=== PATIENT | male | born 1995 | race American Indian/Alaskan Native ===

== ENCOUNTER 2020-03-06 08:54 | Emergency (ER) | payer OTHER ==
[2020-03-06] MEDS ORDERED: SODIUM CHLORIDE 0.9% 1000 ML 1,000 ML ONE (08:59)
[2020-03-06] MEDS ORDERED: fentaNYL 100 MCG/2 ML INJ ONE (08:59)
[2020-03-06] MEDS ORDERED: ONDANSETRON 4 MG/2 ML INJ ONE (08:59)
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
[2020-03-06] MEDS ORDERED: fentaNYL 250 MCG/5 ML INJ IV ONE (09:34)
[2020-03-06] MEDS ORDERED: fentaNYL 100 MCG/2 ML INJ IV ONE ×3 (09:37→10:00)
[2020-03-06] MEDS ORDERED: SODIUM CHLORIDE 0.9% 1000 ML 1,000 ML IV ONE (09:45)
[2020-03-06] MEDS ORDERED: MIDAZOLAM 5 MG/5 ML INJ MDV IV NR (10:00)
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
[2020-03-06] MEDS ORDERED: ETOMIDATE 20 MG/10 ML INJ IV ONE ×2 (10:10→10:24)
--- NOTE | 2020-03-06 10:49 | XRay Report ---
RIGHT SHOULDER 1 VIEW(S) 10:13 AM INDICATION / CLINICAL INFORMATION: Post reduction film. COMPARISON: 9:17 AM FINDINGS: BONES / JOINT(S): Interval external reduction of right shoulder dislocation now with anatomic alignme nt. Impaction defect of the posterolateral humeral head representing a Hill-Sachs lesion. SOFT TISSUES: Mild soft tissue swelling around the right shoulder. ADDITIONAL FINDINGS: None. Signer Name: Yaneth Abreu MD Signed: 03/06/2020 10:45 AM Workstation Name: [id number]
[2020-03-06 18:10] VITALS: BP 124/68
== END 2020-03-06 18:08 | disposition home or self-care (01) ==
LOC: ED 08:54
DX: S43.004A Unspecified dislocation of right shoulder joint, initial encounter (principal); Z79.899 Other long term (current) drug therapy; V23.4XXA Motorcycle driver injured in collision with car, pick-up truck or van in traffic accident, initial encounter; Y93.89 Activity, other specified; Y92.89 Other specified places as the place of occurrence of the external cause; Y99.8 Other external cause status
CPT/HCPCS: 23655; 73020; 73030; 73610; 73630; 96361; 96374; 96375; 96376; 99285; J2250; J2405; J3010; J7030